=== PATIENT | female | born 1940 | race Caucasian/White ===

== ENCOUNTER → 2017-02-08 | Outpatient (CLI) | payer OTHER ==
[~2017-02-08] MED LIST: LASIX40 MG PO
[2017-02-08 10:19] LABS: INTER. NORMALIZED RATIO 1.4; PROTHROMBIN TIME 15.1 SEC (10.2-12.9)
[2017-02-08 10:22] LABS: PTT 36.2 SEC (25-37)
[2017-02-08 10:32] LABS: MCH 35.7 PG (29.0-34.0); MCHC 32.4 G/DL (30.0-36.0); MCV 110.3 FL (83-99); MEAN PLAT.VOLUME 11.2 uM^3 (9.5-12.4); PLATELET COUNT 100 K/uL (156-360); RBC DIS.WIDTH-CV 15.9 % (11.8-14.6); RBC DIS.WIDTH-SD 64.7 % (39-53); RED BLOOD COUNT 2.63 M/uL (3.80-5.20); WHITE BLOOD COUNT 5.4 K/uL (4.1-10.2)
[2017-02-08 10:39] LABS: ANISOCYTOSIS 3+; BASOPHIL COUNT 0.1 K/uL (0-0.1); EOSINOPHIL COUNT 0.3 K/uL (0-0.3); IMMATURE GRANULOCYTE (%) 0.2 % (0.0-0.7); INSTRUMENT ABS NEUTROPHIL CT 2.6 K/uL; LYMPHOCYTE COUNT 2.2 K/uL (1.0-2.8); MACROCYTES 3+; MONOCYTE (%) 5.4 % (3-12); MONOCYTE COUNT 0.3 K/uL (0-0.8); NEUTROPHIL (%) 48.3 % (45-76); NEUTROPHIL COUNT 2.6 K/uL (1.8-6.4); OVALOCYTES 1+; POIKILOCYTOSIS 1+
[2017-02-08 11:41] LABS: POLYCHROMASIA 1+
[2017-02-08 11:42] LABS: PLAT.SUFFICIENCY DECREASED; SCHISTOCYTES RARE; TARGET CELLS RARE
[2017-02-11 10:18] LABS: NUMBER OF MARKERS 22; SPECIMEN VIABILITY 94
== END | disposition home or self-care (01) ==
LOC: OPR 09:36 → EDSTATUS 10:00
PROVIDERS: Internal Medicine Hematology & Oncology
DX: D61.818 Other pancytopenia (principal); B19.20 Unspecified viral hepatitis C without hepatic coma; R16.1 Splenomegaly, not elsewhere classified; K21.9 Gastro-esophageal reflux disease without esophagitis; I10 Essential (primary) hypertension; Z88.0 Allergy status to penicillin
CPT/HCPCS: 38221; G0364; 77012; 85025; 85610; 85730; 88271 90; 88275 90; 88291 90

== ENCOUNTER → 2017-05-31 | Outpatient (CLI) | payer OTHER ==
[~2017-05-31] MED LIST changes: +CALCIUM + D3 E1 EACH PO; +FEOSOL325 MG PO; +FLONASE16 G1 NS; +FUROSEMIDE20 MG PO; +HYDROCHLOROTH12.5 M3 PO; +KLOR-CON M2020 MEQ PO; +LISINOPRIL40 MG PO; +METAMUCIL PLUS1 EACH PO; +METOLAZONE5 MG PO; +OMEPRAZOLE40 M1 PO; +PROAIR RESPICL90 MCG PO; +PROBIOTIC & AC1 EACH PO; +SERTRALINE HCL100 MG PO; +ZYRTEC10 M3 PO
== END | disposition home or self-care (01) ==
LOC: OPR 07:38 → EDSTATUS 08:00
PROC: 0FB23ZX Excision of Left Lobe Liver, Percutaneous Approach, Diagnostic (ICD-10-PCS; principal; 2017-05-31)
DX: B18.2 Chronic viral hepatitis C (principal); D69.6 Thrombocytopenia, unspecified
CPT/HCPCS: 77012; 85730; 88307; 88313; J3010

== ENCOUNTER 2017-08-16 13:45 | Emergency (ER) | payer OTHER ==
[~2017-08-16] VITALS: Ht 160 cm; Wt 67.1 kg
[2017-08-16 16:33] VITALS: BP 120/76
== END 2017-08-16 16:33 | disposition home or self-care (01) ==
LOC: EME 13:45
DX: S52.531A Colles' fracture of right radius, initial encounter for closed fracture (principal); S01.81XA Laceration without foreign body of other part of head, initial encounter; S00.01XA Abrasion of scalp, initial encounter; W10.9XXA Fall (on) (from) unspecified stairs and steps, initial encounter; Y92.009 Unspecified place in unspecified non-institutional (private) residence as the place of occurrence of the external cause
CPT/HCPCS: 70450; 72125; 73110; 99281; 99284

== ENCOUNTER 2017-10-11 18:47 | Inpatient (IN) | payer OTHER ==
[~2017-10-11] VITALS: Ht 160 cm; Wt 68.1 kg
[2017-10-11 19:38] LABS: HEMATOCRIT 31.2 % (36.0-46.0); HEMOGLOBIN 10.7 G/DL (11.9-15.5); MCH 35.8 PG (29.0-34.0); MCHC 34.3 G/DL (30.0-36.0); MCV 104.3 FL (83-99); NRBC (%) 0.3 /100 WBC (0-0); PLATELET COUNT 110 K/uL (156-360); RBC DIS.WIDTH-CV 17.1 % (11.8-14.6); RBC DIS.WIDTH-SD 64.5 % (39-53); RED BLOOD COUNT 2.99 M/uL (3.80-5.20); WHITE BLOOD COUNT 6.4 K/uL (4.1-10.2)
[2017-10-11 19:48] LABS: CHLORIDE 103 mEq/L (99-109); POTASSIUM 4.8 mEq/L (3.7-5.4); SODIUM 135 mEq/L (136-147)
[2017-10-11 19:50] LABS: GLUCOSE 112 mg/dL (70-99)
[2017-10-11 19:54] LABS: CREATININE 1.3 mg/dL (0.6-1.3); GFR ESTIMATE (CALCULATED) 42 mL/min/
[2017-10-11 19:55] LABS: UREA NITROGEN (BUN) 34 mg/dL (9-23)
[2017-10-11 19:58] LABS: TROP-I INTERPRETATION NEGATIVE; TROPONIN-I 0.02 ng/mL (0.0-0.30)
[2017-10-11] MEDS ORDERED: METOPROLOL SUCC25 MG PO (20:38)
[2017-10-11] MEDS ORDERED: ANTIVERT25 MG PO (20:39)
[2017-10-11] MEDS ORDERED: TRAMADOL HCL50 MG PO (20:39)
[2017-10-11] MEDS ORDERED: SPIRONOLACTONE50 MG PO (20:39)
[2017-10-11] MEDS ORDERED: SERTRALINE HCL50 MG PO (20:40)
[2017-10-11] MEDS ORDERED: OMEPRAZOLE40 M1 PO (20:40)
[2017-10-11] MEDS ORDERED: BAYER CHEWABLE81 MG PO (20:41)
[2017-10-11 23:53] LABS: ALBUMIN 2.2 g/dL (3.2-4.8)
[2017-10-11 23:55] LABS: TOTAL PROTEIN 5.8 g/dL (6.4-8.3)
[2017-10-11 23:57] LABS: TOTAL BILIRUBIN 4.3 mg/dL (0.0-1.0)
[2017-10-11 23:58] LABS: ALKALINE PHOSPHATASE 58 IU/L (3-129)
[2017-10-12] VITALS (16 sets, daily range): BP systolic 92–139; BP diastolic 56–81
[2017-10-12 00:01] LABS: ALT (GPT) 14 IU/L (3-49); AST (GOT) 30 IU/L (2-34); DIRECT BILIRUBIN 2.8 mg/dL (0.0-0.3)
[2017-10-12 05:43] LABS: HEMATOCRIT 20.6 % (36.0-46.0); MCH 34.9 PG (29.0-34.0); MCV 105.6 FL (83-99); RBC DIS.WIDTH-CV 17.1 % (11.8-14.6)
[2017-10-12 05:44] LABS: HEMOGLOBIN 6.8 G/DL (11.9-15.5); RED BLOOD COUNT 1.95 M/uL (3.80-5.20)
[2017-10-12 05:55] LABS: ALBUMIN 4.2 G/DL (3.2-4.8); ALKALINE PHOSPHATASE 40 IU/L (3-129); ALT (GPT) 8 IU/L (3-49); AST (GOT) 18 IU/L (2-34); CHLORIDE 105 MEQ/L (99-109); CREATININE 1.3 MG/DL (0.6-1.3); DIRECT BILIRUBIN 2.4 mg/dL (0.0-0.3); GFR ESTIMATE (CALCULATED) 42 mL/min/; GLUCOSE 89 mg/dL (70-99); POTASSIUM 4.7 MEQ/L (3.7-5.4); SODIUM 137 MEQ/L (136-147); TOTAL BILIRUBIN 4.3 MG/DL (0.0-1.0); TOTAL PROTEIN 6.9 G/DL (6.4-8.3); UREA NITROGEN (BUN) 34 mg/dL (9-23)
[2017-10-12 06:01] LABS: ABS NEUTROPHIL COUNT 4.5; ANISOCYTOSIS 3+; BAND NEUTROPHILS 28.1 % (0-8.0); EOSINOPHIL ABS CT 0; HYPOCHROMASIA 1+; LYMPHOCYTES 25.4 % (15.0-45.0); MACROCYTES 3+; PLAT.SUFFICIENCY DECREASED; SEG.NEUTROPHILS 46.5 % (46.0-76.0)
[2017-10-12 06:35] LABS: PLATELET COUNT 62 K/uL (156-360)
[2017-10-12 06:39] LABS: IMM.RETIC FRACTION 22.8 % (3-19); RETIC HGB EQUIVALENT 36.8 (28-36)
[2017-10-12 06:51] LABS: HEMATOCRIT 19.5 % (36.0-46.0); MCV 106.6 FL (83-99)
[2017-10-12 06:52] LABS: HEMOGLOBIN 6.4 G/DL (11.9-15.5)
[2017-10-12 08:28] LABS: APPEARANCE CLOUDY ((CLEAR)); BILIRUBIN NEGATIVE; BLOOD NEGATIVE; COLOR AMBER ((YELLOW)); GLUCOSE (STRIP) NEGATIVE; KETONES NEGATIVE; LEUKOCYTES NEGATIVE; NITRITE NEGATIVE; PROTEIN (STRIP) 30; SPECIFIC GRAVITY 1.021 (1.000-1.030)
[2017-10-12 08:45] LABS: EPITHELIAL CELLS 3+ /HPF; MUCUS NONE SEEN /LPF
[2017-10-12 08:47] LABS: BACTERIA 3+ /HPF; RED BLOOD CELLS NONE SEEN /HPF (0-5); UCUL ADDED? YES; WHITE BLOOD CELLS 0-5 /HPF (0-5)
[2017-10-12 10:25] LABS: INTER. NORMALIZED RATIO 2.9
[2017-10-13] VITALS (17 sets, daily range): BP systolic 81–160; BP diastolic 48–92
[2017-10-13 06:18] LABS: HEMATOCRIT 31.6 % (36.0-46.0); MCH 32.8 PG (29.0-34.0); MCHC 32.3 G/DL (30.0-36.0); PLATELET COUNT 68 K/uL (156-360); RBC DIS.WIDTH-CV 20.4 % (11.8-14.6); RBC DIS.WIDTH-SD 74.6 % (39-53); WHITE BLOOD COUNT 8.2 K/uL (4.1-10.2)
[2017-10-13 06:22] LABS: INTER. NORMALIZED RATIO 2.9
[2017-10-13 06:25] LABS: HEMOGLOBIN 10.2 G/DL (11.9-15.5); MCV 101.6 FL (83-99); PTT 54.7 SEC (25-37); RED BLOOD COUNT 3.11 M/uL (3.80-5.20)
[2017-10-13 06:42] LABS: ALBUMIN 3.6 G/DL (3.2-4.8); ALKALINE PHOSPHATASE 42 IU/L (3-129); AST (GOT) 20 IU/L (2-34); CHLORIDE 106 MEQ/L (99-109); CREATININE 1.7 MG/DL (0.6-1.3); GFR ESTIMATE (CALCULATED) 31 mL/min/; GLUCOSE 72 mg/dL (70-99); MAGNESIUM 1.4 mg/dl (1.3-2.7); POTASSIUM 4.8 MEQ/L (3.7-5.4); SODIUM 136 MEQ/L (136-147); TOTAL PROTEIN 6.7 G/DL (6.4-8.3); UREA NITROGEN (BUN) 38 mg/dL (9-23)
[2017-10-13 06:43] LABS: TOTAL BILIRUBIN 7.2 MG/DL (0.0-1.0)
[2017-10-13 08:15] LABS: ALT (GPT) 8 IU/L (3-49)
[2017-10-13 14:56] LABS: COMMENTS - BLOOD GASES A+C+; DEVICE NRBM/NCH; FI02 100 %; O2 FLOW 15 L/MIN; SITE RR; TOTAL RESP RATE 34 resp/min
[2017-10-13 14:57] LABS: BICARBONATE 15.6 mEq/L (22-26); CARBOXY HGB 2.2 % (0-5); METHEMOGLOBIN 0.5 % (0-1.5); O2 SATURATION (CALCULATED) 91.4 % (95-99); PCO2 47 mm Hg (35-45); PO2 60 mm Hg (80-100); pH 7.13 (7.35-7.45)
[2017-10-13 15:36] LABS: GLUCOSE 232 mg/dL (70-99)
[2017-10-13 17:19] LABS: HEMATOCRIT 29.9 % (36.0-46.0); HEMOGLOBIN 9.5 G/DL (11.9-15.5); MCH 33.2 PG (29.0-34.0); MCHC 31.8 G/DL (30.0-36.0); MCV 104.5 FL (83-99); NRBC (%) 0.2 /100 WBC (0-0); PLATELET COUNT 55 K/uL (156-360); RBC DIS.WIDTH-CV 20.7 % (11.8-14.6); RBC DIS.WIDTH-SD 79.2 % (39-53); RED BLOOD COUNT 2.86 M/uL (3.80-5.20); WHITE BLOOD COUNT 8.4 K/uL (4.1-10.2)
[2017-10-13 17:24] LABS: BASOPHIL (%) 0.1 % (0-1); EOSINOPHIL (%) 0.2 % (0-5); IMMATURE GRANULOCYTE (%) 0.7 % (0.0-0.7); LYMPHOCYTE (%) 15.4 % (15-42); LYMPHOCYTE COUNT 1.3 K/uL (1.0-2.8); MONOCYTE (%) 5.9 % (3-12); MONOCYTE COUNT 0.5 K/uL (0-0.8); NEUTROPHIL (%) 77.7 % (45-76); NEUTROPHIL COUNT 6.5 K/uL (1.8-6.4)
[2017-10-13 17:28] LABS: O2 SATURATION (CALCULATED) 94.2 % (95-99); PCO2 32 mm Hg (35-45); PO2 57 mm Hg (80-100); pH 7.33 (7.35-7.45)
[2017-10-13 17:29] LABS: BASE EXCESS -8.1 mEq/L (-3 to +3); BICARBONATE 16.9 mEq/L (22-26); CARBOXY HGB 2.2 % (0-5); COMMENTS - BLOOD GASES A+C+; DEVICE VENT; FI02 50 %; MECHANICAL RATE 20 resp/min; METHEMOGLOBIN 0.5 % (0-1.5); MODE ACVC; SITE LR; TIDAL VOLUME 400 ML; TOTAL RESP RATE 20 resp/min
[2017-10-13 17:46] LABS: ALBUMIN 3.5 G/DL (3.2-4.8); ALKALINE PHOSPHATASE 42 IU/L (3-129); ALT (GPT) 11 IU/L (3-49); AST (GOT) 32 IU/L (2-34); CHLORIDE 105 MEQ/L (99-109); CREATININE 1.9 MG/DL (0.6-1.3); GFR ESTIMATE (CALCULATED) 27 mL/min/; GLUCOSE 112 mg/dL (70-99); POTASSIUM 4.7 MEQ/L (3.7-5.4); SODIUM 136 MEQ/L (136-147); TOTAL BILIRUBIN 7.3 MG/DL (0.0-1.0); TOTAL PROTEIN 6.4 G/DL (6.4-8.3); UREA NITROGEN (BUN) 40 mg/dL (9-23)
[2017-10-13 19:12] LABS: HIGH-SENS C-REACTIVE PROTEIN > 8.00 MG/DL (0.02-0.20)
[2017-10-13 23:45] LABS: COMMENTS - BLOOD GASES C+; DEVICE VENT; FI02 70 %; MECHANICAL RATE 20 resp/min; MODE AC; PEEP 8 CM/H20; SITE LB; TIDAL VOLUME 400 ML; TOTAL RESP RATE 20 resp/min
[2017-10-13 23:46] LABS: BASE EXCESS -8.9 mEq/L (-3 to +3); BICARBONATE 19.2 mEq/L (22-26); CARBOXY HGB 2.1 % (0-5); METHEMOGLOBIN 0.9 % (0-1.5); PCO2 40 mm Hg (35-45); PO2 49 mm Hg (80-100); pH 7.29 (7.35-7.45)
[2017-10-13 23:51] LABS: HEMATOCRIT 28.3 % (36.0-46.0); HEMOGLOBIN 9.4 G/DL (11.9-15.5); MCH 34.4 PG (29.0-34.0); MCHC 33.2 G/DL (30.0-36.0); MCV 103.7 FL (83-99); PLATELET COUNT 52 K/uL (156-360); RBC DIS.WIDTH-CV 20.5 % (11.8-14.6); RBC DIS.WIDTH-SD 77.4 % (39-53); RED BLOOD COUNT 2.73 M/uL (3.80-5.20); WHITE BLOOD COUNT 9.2 K/uL (4.1-10.2)
[2017-10-14] VITALS (29 sets, daily range): BP systolic 81–108; BP diastolic 50–67
[2017-10-14 00:03] LABS: ALBUMIN 2.9 g/dL (3.2-4.8); CHLORIDE 107 mEq/L (99-109); POTASSIUM 4.6 mEq/L (3.7-5.4); SODIUM 136 mEq/L (136-147)
[2017-10-14 00:04] LABS: MAGNESIUM 1.3 mg/dL (1.3-2.7)
[2017-10-14 00:06] LABS: GLUCOSE 158 mg/dL (70-99); TOTAL PROTEIN 5.6 g/dL (6.4-8.3)
[2017-10-14 00:09] LABS: ALKALINE PHOSPHATASE 39 IU/L (3-129)
[2017-10-14 00:10] LABS: CREATININE 1.9 mg/dL (0.6-1.3); GFR ESTIMATE (CALCULATED) 27 mL/min/; TOTAL BILIRUBIN 6.1 mg/dL (0.0-1.0)
[2017-10-14 00:11] LABS: AST (GOT) 43 IU/L (2-34); UREA NITROGEN (BUN) 42 mg/dL (9-23)
[2017-10-14 00:12] LABS: ALT (GPT) 13 IU/L (3-49)
[2017-10-14 00:25] LABS: INTER. NORMALIZED RATIO 3.1
[2017-10-14 00:27] LABS: PTT 49.8 SEC (25-37)
[2017-10-14 00:30] LABS: FIBRINOGEN 121 mg/dL (150-450)
[2017-10-14 04:53] LABS: COMMENTS - BLOOD GASES C+; DEVICE VENT; FI02 100 %; INSPIRATION TIME 0.97 seconds; MECHANICAL RATE 20 resp/min; MODE AC/VC+; PEEP 14 CM/H20; SITE RB; TIDAL VOLUME 400 ML; TOTAL RESP RATE 20 resp/min
[2017-10-14 04:54] LABS: BASE EXCESS -5.4 mEq/L (-3 to +3); BICARBONATE 21.1 mEq/L (22-26); CARBOXY HGB 2.2 % (0-5); METHEMOGLOBIN 1.1 % (0-1.5); PCO2 45 mm Hg (35-45); PO2 66 mm Hg (80-100); pH 7.28 (7.35-7.45)
[2017-10-14 05:07] LABS: HEMOGLOBIN 9.2 G/DL (11.9-15.5); MCH 33.3 PG (29.0-34.0); MCHC 31.7 G/DL (30.0-36.0); MCV 105.1 FL (83-99); NRBC (%) 0.3 /100 WBC (0-0); PLATELET COUNT 60 K/uL (156-360); RBC DIS.WIDTH-CV 20.5 % (11.8-14.6); RBC DIS.WIDTH-SD 77.4 % (39-53); RED BLOOD COUNT 2.76 M/uL (3.80-5.20); WHITE BLOOD COUNT 8.8 K/uL (4.1-10.2)
[2017-10-14 05:56] LABS: BASOPHIL (%) 0.1 % (0-1); EOSINOPHIL (%) 0.5 % (0-5); IMMATURE GRANULOCYTE (%) 0.6 % (0.0-0.7); LYMPHOCYTE COUNT 1.5 K/uL (1.0-2.8); MONOCYTE (%) 1.7 % (3-12); MONOCYTE COUNT 0.2 K/uL (0-0.8); NEUTROPHIL (%) 80.1 % (45-76); NEUTROPHIL COUNT 7.1 K/uL (1.8-6.4)
[2017-10-14 06:06] LABS: ALBUMIN 3.3 G/DL (3.2-4.8); ALKALINE PHOSPHATASE 39 IU/L (3-129); ALT (GPT) 13 IU/L (3-49); AST (GOT) 43 IU/L (2-34); CHLORIDE 105 MEQ/L (99-109); GFR ESTIMATE (CALCULATED) 26 mL/min/; GLUCOSE 171 mg/dL (70-99); POTASSIUM 4.2 MEQ/L (3.7-5.4); SODIUM 139 MEQ/L (136-147); TOTAL PROTEIN 6.3 G/DL (6.4-8.3); UREA NITROGEN (BUN) 43 mg/dL (9-23)
[2017-10-14 06:20] LABS: TOTAL BILIRUBIN 5.6 MG/DL (0.0-1.0)
[2017-10-14 07:19] LABS: TYPE OF FLUID PLEURAL
[2017-10-14 09:08] LABS: APPEARANCE YELLOW-CLOUDY; BODY FLUID RBC'S 5000 /MM^3 (0-100); BODY FLUID WBC'S 14650 /MM^3 (0-500)
[2017-10-14 09:24] LABS: BODY FLUID EOSINOPHILS 0 % (0-25); MONONUCLEAR WBC'S 1 %; POLYNUCLEAR WBC'S 99 % (0-25)
[2017-10-14 09:29] LABS: BODY FLUID GLUCOSE 163 MG/DL; BODY FLUID LDH 326 IU/L; BODY FLUID PROTEIN < 3.0 G/DL
[2017-10-14 11:08] LABS: TYPE OF FLUID PARACENTESIS
[2017-10-14 11:54] LABS: BODY FLUID GLUCOSE 135 MG/DL; BODY FLUID LDH 112 IU/L
[2017-10-14 11:58] LABS: BODY FLUID PROTEIN < 3.0 G/DL
[2017-10-14 13:50] LABS: APPEARANCE YELLOW-CLEAR; BODY FLUID EOSINOPHILS 0 % (0-25); BODY FLUID RBC'S < 1000 /MM^3 (0-100); BODY FLUID WBC'S 1207 /MM^3 (0-500); MONONUCLEAR WBC'S 17 %; POLYNUCLEAR WBC'S 83 % (0-25)
[2017-10-15] VITALS (32 sets, daily range): BP systolic 78–111; BP diastolic 45–68
[2017-10-15 05:10] LABS: HEMATOCRIT 29.1 % (36.0-46.0); HEMOGLOBIN 9.3 G/DL (11.9-15.5); MCV 103.2 FL (83-99); NRBC (%) 0.6 /100 WBC (0-0); PLATELET COUNT 52 K/uL (156-360); RBC DIS.WIDTH-CV 19.6 % (11.8-14.6); RBC DIS.WIDTH-SD 73.5 % (39-53); RED BLOOD COUNT 2.82 M/uL (3.80-5.20); WHITE BLOOD COUNT 9.7 K/uL (4.1-10.2)
[2017-10-15 05:40] LABS: ALBUMIN 3.6 G/DL (3.2-4.8); ALKALINE PHOSPHATASE 41 IU/L (3-129); ALT (GPT) 8 IU/L (3-49); AST (GOT) 37 IU/L (2-34); CHLORIDE 105 MEQ/L (99-109); GFR ESTIMATE (CALCULATED) 19 mL/min/; MAGNESIUM 1.3 mg/dl (1.3-2.7); PHOSPHORUS 3.3 mg/dL (2.5-4.9); POTASSIUM 4.4 MEQ/L (3.7-5.4); SODIUM 138 MEQ/L (136-147); TOTAL BILIRUBIN 6.2 MG/DL (0.0-1.0); UREA NITROGEN (BUN) 47 mg/dL (9-23)
[2017-10-15 05:41] LABS: CREATININE 2.6 MG/DL (0.6-1.3); GLUCOSE 40 mg/dL (70-99)
[2017-10-15 05:43] LABS: BASOPHIL (%) 0.2 % (0-1); EOSINOPHIL (%) 2.5 % (0-5); EOSINOPHIL COUNT 0.2 K/uL (0-0.3); IMMATURE GRANULOCYTE (%) 0.4 % (0.0-0.7); LYMPHOCYTE (%) 17.2 % (15-42); LYMPHOCYTE COUNT 1.7 K/uL (1.0-2.8); MONOCYTE (%) 2.5 % (3-12); MONOCYTE COUNT 0.2 K/uL (0-0.8); NEUTROPHIL (%) 77.2 % (45-76); NEUTROPHIL COUNT 7.5 K/uL (1.8-6.4)
[2017-10-15 22:25] LABS: BODY FLUID PH 7.6 (())
[2017-10-15 22:37] LABS: CARBOXY HGB 2.2 % (0-5); METHEMOGLOBIN 1.1 % (0-1.5); O2 SATURATION (CALCULATED) 87.6 % (95-99); PCO2 44 mm Hg (35-45); PO2 50 mm Hg (80-100); pH 7.25 (7.35-7.45)
[2017-10-15 22:38] LABS: BASE EXCESS -7.5 mEq/L (-3 to +3); BICARBONATE 19.3 mEq/L (22-26); COMMENTS - BLOOD GASES C+; DEVICE VENT; FI02 100 %; INSPIRATION TIME 0.95 seconds; MECHANICAL RATE 20 resp/min; MODE AC VC+; PEEP 14 CM/H20; SITE ALINE; TIDAL VOLUME 400 ML; TOTAL RESP RATE 20 resp/min
[2017-10-16 00:10] VITALS: BP 97/44
[2017-10-16 01:05] LABS: ALBUMIN 3.6 g/dL (3.2-4.8)
[2017-10-16 01:06] LABS: CHLORIDE 109 mEq/L (99-109); POTASSIUM 4.1 mEq/L (3.7-5.4); SODIUM 138 mEq/L (136-147)
[2017-10-16 01:07] VITALS: BP 87/42
[2017-10-16 01:11] LABS: GFR ESTIMATE (CALCULATED) 29 mL/min/; PHOSPHORUS 2.4 mg/dL (2.5-4.9)
[2017-10-16 01:12] LABS: UREA NITROGEN (BUN) 34 mg/dL (9-23)
[2017-10-16 01:14] LABS: CREATININE 1.8 mg/dL (0.6-1.3); GLUCOSE 156 mg/dL (70-99)
[2017-10-16 05:53] LABS: ALBUMIN 4.6 G/DL (3.2-4.8); ALKALINE PHOSPHATASE 44 IU/L (3-129); ALT (GPT) 10 IU/L (3-49); AST (GOT) 50 IU/L (2-34); CHLORIDE 105 MEQ/L (99-109); CREATININE 1.6 MG/DL (0.6-1.3); GFR ESTIMATE (CALCULATED) 33 mL/min/; POTASSIUM 4.5 MEQ/L (3.7-5.4); SODIUM 138 MEQ/L (136-147); TOTAL BILIRUBIN 6.4 MG/DL (0.0-1.0); TOTAL PROTEIN 6.8 G/DL (6.4-8.3); UREA NITROGEN (BUN) 25 mg/dL (9-23)
[2017-10-16 05:54] LABS: GLUCOSE 73 mg/dL (70-99); PHOSPHORUS 1.8 mg/dL (2.5-4.9)
[2017-10-16 08:13] LABS: HEMATOCRIT 27.1 % (36.0-46.0); HEMOGLOBIN 8.6 G/DL (11.9-15.5); MCH 33.5 PG (29.0-34.0); MCHC 31.7 G/DL (30.0-36.0); MCV 105.4 FL (83-99); RBC DIS.WIDTH-CV 20.2 % (11.8-14.6); RBC DIS.WIDTH-SD 78.1 % (39-53); RED BLOOD COUNT 2.57 M/uL (3.80-5.20); WHITE BLOOD COUNT 7.9 K/uL (4.1-10.2)
[2017-10-16 08:20] LABS: PLATELET COUNT 70 K/uL (156-360)
[2017-10-16 08:36] LABS: MAGNESIUM 1.8 mg/dl (1.3-2.7)
[2017-10-16 08:40] LABS: BASOPHIL (%) 0.1 % (0-1); EOSINOPHIL (%) 9.7 % (0-5); EOSINOPHIL COUNT 0.8 K/uL (0-0.3); IMMATURE GRANULOCYTE (%) 3.5 % (0.0-0.7); LYMPHOCYTE (%) 17.7 % (15-42); LYMPHOCYTE COUNT 1.4 K/uL (1.0-2.8); MONOCYTE (%) 1.3 % (3-12); MONOCYTE COUNT 0.1 K/uL (0-0.8); NEUTROPHIL (%) 67.7 % (45-76); NEUTROPHIL COUNT 5.4 K/uL (1.8-6.4)
[2017-10-16 09:07] LABS: HEMATOCRIT 26.7 % (36.0-46.0); HEMOGLOBIN 8.7 G/DL (11.9-15.5); MCHC 32.6 G/DL (30.0-36.0); MCV 104.3 FL (83-99); NRBC (%) 2.8 /100 WBC (0-0); PLATELET COUNT 80 K/uL (156-360); RBC DIS.WIDTH-SD 73.9 % (39-53); RED BLOOD COUNT 2.56 M/uL (3.80-5.20); WHITE BLOOD COUNT 7.1 K/uL (4.1-10.2)
[2017-10-16 12:01] VITALS: BP 100/64
[2017-10-16 13:20] LABS: CHLORIDE 104 MEQ/L (99-109); CREATININE 1.4 MG/DL (0.6-1.3); GFR ESTIMATE (CALCULATED) 39 mL/min/; GLUCOSE 53 mg/dL (70-99); PHOSPHORUS 1.6 mg/dL (2.5-4.9); POTASSIUM 4.3 MEQ/L (3.7-5.4); SODIUM 137 MEQ/L (136-147); UREA NITROGEN (BUN) 20 mg/dL (9-23)
[2017-10-16 18:27] LABS: ALBUMIN 3.9 G/DL (3.2-4.8); CHLORIDE 106 MEQ/L (99-109); CREATININE 1.2 MG/DL (0.6-1.3); GFR ESTIMATE (CALCULATED) 47 mL/min/; POTASSIUM 3.9 MEQ/L (3.7-5.4); SODIUM 139 MEQ/L (136-147); UREA NITROGEN (BUN) 15 mg/dL (9-23)
[2017-10-16 18:28] LABS: GLUCOSE 81 mg/dL (70-99); PHOSPHORUS 2.6 mg/dL (2.5-4.9)
[2017-10-16 20:22] LABS: HEMATOCRIT 25.9 % (36.0-46.0); HEMOGLOBIN 8.3 G/DL (11.9-15.5); MCV 106.1 FL (83-99); NRBC (%) 4.6 /100 WBC (0-0); RBC DIS.WIDTH-CV 19.8 % (11.8-14.6); RBC DIS.WIDTH-SD 75.1 % (39-53); RED BLOOD COUNT 2.44 M/uL (3.80-5.20)
[2017-10-16 20:36] LABS: PHOSPHORUS 2.3 mg/dL (2.5-4.9)
[2017-10-16 20:37] LABS: MAGNESIUM 2.2 mg/dl (1.3-2.7)
[2017-10-16 20:55] LABS: ABS NEUTROPHIL COUNT 5.8; ANISOCYTOSIS 3+; BAND NEUTROPHILS 45.6 % (0-8.0); BASOPH.STIPPLING 1+; BURR CELLS 2+; EOSINOPHIL ABS CT 1.3; IMM.PLATELET FRACTION 7.6 (1-7); LYMPHOCYTES 12.3 % (15.0-45.0); MACROCYTES 3+; OVALOCYTES 1+; PLAT.SUFFICIENCY VERY DECREASED; POIKILOCYTOSIS 2+; POLYCHROMASIA 1+; SCHISTOCYTES 1+; TEAR DROP CELLS 1+
[2017-10-16 21:01] LABS: EOSINOPHILS 15.8 % (0-5.0); PLATELET COUNT 15 K/uL (156-360); SEG.NEUTROPHILS 26.3 % (46.0-76.0)
[2017-10-17 01:45] VITALS: BP 83/34
[2017-10-17 02:00] VITALS: BP 89/38
[2017-10-17 02:45] VITALS: BP 89/36
[2017-10-17 03:45] VITALS: BP 92/35
[2017-10-17 04:30] VITALS: BP 108/44
[2017-10-17 06:32] LABS: HEMATOCRIT 23.7 % (36.0-46.0); HEMOGLOBIN 7.7 G/DL (11.9-15.5); MCH 34.2 PG (29.0-34.0); MCHC 32.5 G/DL (30.0-36.0); MCV 105.3 FL (83-99); NRBC (%) 5.8 /100 WBC (0-0); RBC DIS.WIDTH-CV 19.9 % (11.8-14.6); RBC DIS.WIDTH-SD 75.4 % (39-53); RED BLOOD COUNT 2.25 M/uL (3.80-5.20); WHITE BLOOD COUNT 9.6 K/uL (4.1-10.2)
[2017-10-17 06:50] LABS: MAGNESIUM 2.1 mg/dl (1.3-2.7)
[2017-10-17 06:51] LABS: PHOSPHORUS 1.1 mg/dL (2.5-4.9)
[2017-10-17 06:52] LABS: ALBUMIN 3.6 G/DL (3.2-4.8); CHLORIDE 104 MEQ/L (99-109); CREATININE 0.8 MG/DL (0.6-1.3); GFR ESTIMATE (CALCULATED) > 59 mL/min/; GLUCOSE 87 mg/dL (70-99); PHOSPHORUS 1.1 mg/dL (2.5-4.9); POTASSIUM 3.9 MEQ/L (3.7-5.4); SODIUM 138 MEQ/L (136-147); UREA NITROGEN (BUN) 8 mg/dL (9-23)
[2017-10-17 07:02] LABS: ABS NEUTROPHIL COUNT 7.9; ANISOCYTOSIS 3+; BASOPHILS 0.9 %; BURR CELLS 2+; EOSINOPHIL ABS CT 0.8; EOSINOPHILS 8.8 % (0-5.0); HEMATOLOGY COMMENT 1 SN; IMM.PLATELET FRACTION 3.5 (1-7); LYMPHOCYTES 7.9 % (15.0-45.0); MACROCYTES 3+; NUCLEATED RBC'S 6.1; OVALOCYTES 1+; PLAT.SUFFICIENCY DECREASED; POIKILOCYTOSIS 3+; POLYCHROMASIA 2+
[2017-10-17 07:04] LABS: BAND NEUTROPHILS 18.4 % (0-8.0); PLATELET COUNT 43 K/uL (156-360)
[2017-10-17 12:01] VITALS: BP 100/61
[2017-10-17 15:30] LABS: ALBUMIN 3.5 G/DL (3.2-4.8); CHLORIDE 106 MEQ/L (99-109); CREATININE 0.8 MG/DL (0.6-1.3); GFR ESTIMATE (CALCULATED) > 59 mL/min/; PHOSPHORUS 1.2 mg/dL (2.5-4.9); SODIUM 138 MEQ/L (136-147); UREA NITROGEN (BUN) 7 mg/dL (9-23)
[2017-10-17 15:31] LABS: GLUCOSE 110 mg/dL (70-99); POTASSIUM 5.1 MEQ/L (3.7-5.4)
== END 2017-10-17 16:13 | DRG 871 ==
LOC: EME → EDBD 18:47 → EME 18:47 → EDOF 22:44 → 4WEST 22:44 → ENRESERV 22:45 → 4EAST 10-12 00:06 → 4WEST 10-13 14:58 → ENRESERV 10-13 14:59 → 4WEST 10-13 15:07
PROVIDERS: Hospitalist; Internal Medicine; Internal Medicine Gastroenterology; Internal Medicine Nephrology; Obstetrics & Gynecology
PROC: 30233N1 Transfusion of Nonautologous Red Blood Cells into Peripheral Vein, Percutaneous Approach (ICD-10-PCS; principal; 2017-10-12)
PROC: 5A1945Z Respiratory Ventilation, 24-96 Consecutive Hours (ICD-10-PCS; 2017-10-15)
PROC: 30233R1 Transfusion of Nonautologous Platelets into Peripheral Vein, Percutaneous Approach (ICD-10-PCS; 2017-10-15)
PROC: 0W9G3ZZ Drainage of Peritoneal Cavity, Percutaneous Approach (ICD-10-PCS; 2017-10-15)
PROC: 30233M1 Transfusion of Nonautologous Plasma Cryoprecipitate into Peripheral Vein, Percutaneous Approach (ICD-10-PCS; 2017-10-15)
PROC: 0BH17EZ Insertion of Endotracheal Airway into Trachea, Via Natural or Artificial Opening (ICD-10-PCS; 2017-10-15)
PROC: 02HV33Z Insertion of Infusion Device into Superior Vena Cava, Percutaneous Approach (ICD-10-PCS; 2017-10-15)
PROC: 03HY32Z Insertion of Monitoring Device into Upper Artery, Percutaneous Approach (ICD-10-PCS; 2017-10-17)
DX: A41.51 Sepsis due to Escherichia coli [E. coli] (principal); N17.0 Acute kidney failure with tubular necrosis; J18.9 Pneumonia, unspecified organism; R65.21 Severe sepsis with septic shock; J96.01 Acute respiratory failure with hypoxia; E87.2 Acidosis; I13.0 Hypertensive heart and chronic kidney disease with heart failure and stage 1 through stage 4 chronic kidney disease, or unspecified chronic kidney disease; J98.11 Atelectasis; R18.8 Other ascites; K76.6 Portal hypertension; E43 Unspecified severe protein-calorie malnutrition; J94.8 Other specified pleural conditions; K65.2 Spontaneous bacterial peritonitis; I50.9 Heart failure, unspecified; R74.0 Nonspecific elevation of levels of transaminase and lactic acid dehydrogenase [LDH]; I35.0 Nonrheumatic aortic (valve) stenosis; D50.9 Iron deficiency anemia, unspecified; B18.2 Chronic viral hepatitis C; F32.9 Major depressive disorder, single episode, unspecified; Z51.5 Encounter for palliative care; K72.10 Chronic hepatic failure without coma; M05.9 Rheumatoid arthritis with rheumatoid factor, unspecified; I25.10 Atherosclerotic heart disease of native coronary artery without angina pectoris; F41.9 Anxiety disorder, unspecified; Z90.710 Acquired absence of both cervix and uterus; D69.59 Other secondary thrombocytopenia; K21.9 Gastro-esophageal reflux disease without esophagitis; D53.9 Nutritional anemia, unspecified; I42.2 Other hypertrophic cardiomyopathy; K74.60 Unspecified cirrhosis of liver; N18.9 Chronic kidney disease, unspecified; M54.9 Dorsalgia, unspecified; R00.0 Tachycardia, unspecified; G89.29 Other chronic pain
CPT/HCPCS: 36600; 49083; 71045; 71250; 74176; 80048; 80053; 80069; 80076; 81003; 82105 90; 82140; 82330; 82436; 82570; 82803; 82945; 82948; 83605; 83615 91; 83735; 83880; 83986 90; 84100; 84133; 84145 90; 84157; 84300; 84484; 84999; 85014; 85018; 85025; 85025 91; 85027; 85046; 85384; 85610; 85730; 86141; 86850; 86900; 86901; 86920; 86965; 87040; 87070; 87075; 87077; 87086; 87106; 87186; 87205; 87449; 87493; 87641; 87801; 88108; 88305; 89051; 93005; 94002; 94003; 94640; 94640 76; 94760; 94799; 99281; 99285; C1751; C1788; C9113; J0456; J0696; J1644; J1940; J2060; J2185; J2354; J2405; J2543; J2704; J3010; J3475; J7030; J7042; J7050; J7070; P9012; P9016; P9017; P9035; P9037; P9047